=== PATIENT | female | born 2000 | race Caucasian/White ===

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

== ENCOUNTER 2019-03-30 16:48 | Emergency (ER) | payer OTHER ==
[~2019-03-30] VITALS: Ht 162.6 cm; Wt 75.1 kg
[2019-03-30 17:05] VITALS: BP 134/71
[2019-03-30] MEDS ORDERED: FLUORESCEIN OPHTHALMIC 1 MG STRIP EACHEYE ONE (17:30)
[2019-03-30] MEDS ORDERED: PROPARACAINE OPHTH 0.5%, 15ML EACHEYE ONE (17:30)
[2019-03-30] MEDS ORDERED: FLUORESCEIN OPHTHALMIC 1 MG STRIP ONE (17:45)
[2019-03-30] MEDS ORDERED: PROPARACAINE OPHTH 0.5%, 15ML ONE (17:45)
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
--- NOTE | 2019-03-30 18:38 | NUR ---
Patient/Caregiver given discharge instructions and they have confirmed that they understand the instructions. Patient ambulatory with steady gait. pt left with all personal belongings.
[2019-03-30] MEDS ORDERED: ERYTHROMYCIN OPHTH 0.5%, 1GM RIGHTEYE SCH (21:00)
== END 2019-03-30 18:41 | disposition home or self-care (01) ==
LOC: ED 18:05
DX: H01.001 Unspecified blepharitis right upper eyelid (principal)
CPT/HCPCS: 99282

== ENCOUNTER → 2019-11-19 | Outpatient (CLI) | payer OTHER ==
[~2019-11-19] MED LIST: FLUC200T PO; MULT-257 PO; MULT-94 PO; OXYC-302 PO
== END | disposition home or self-care (01) ==
LOC: RAD 15:39
PROVIDERS: ATTEND Nurse Practitioner Women's Health
DX: N83.291 Other ovarian cyst, right side (principal)
CPT/HCPCS: 76830

== ENCOUNTER 2021-04-05 09:14 | Outpatient (CLI) | payer OTHER ==
[~2021-04-05 09:14] MED LIST changes: +DOXY100T PO; +FLUC150T PO; +LACT1CAP35 PO; +METR500T PO; -OXYC-302 PO; +OXYC1TAB14 PO
== END 2021-04-05 23:59 | disposition home or self-care (01) ==
LOC: CFH 09:14
PROVIDERS: ATTEND Student in an Organized Health Care Education/Training Program
DX: M25.571 Pain in right ankle and joints of right foot (principal)
CPT/HCPCS: 72131